=== PATIENT | female | born 1990 | race Caucasian/White ===

== ENCOUNTER 2019-10-12 14:39 | Inpatient (IN) | payer MEDICAID ==
[~2019-10-12] VITALS: Ht 160 cm; Wt 52.2 kg
[2019-10-12 14:42] VITALS: BP 108/72
--- NOTE | 2019-10-12 14:45 | NUR ---
PT TO ER BED 2
--- NOTE | 2019-10-12 14:50 | NUR ---
PT C/O INTERMITTENT SUPRAPUBIC PAIN 12/19 POST UNPROTECTED INTERCOURSE. PT STATES SHE HAD UNPROTECTED SEX TWO DAYS AGO AND IMMEDIATELY AFTER FELT A SHOOTING PAIN FROM HER PELVIS TO STOMACH. PT DENIES DISCHARGE OR VAGINAL BLEEDING. DENIES N/V/D. STATES 1 SEXUAL PARTNER. VS STABLE.PT ALERT AND AWAKE. AMBULATORY. NO PMH ALLERGIES: SULFAS
--- NOTE | 2019-10-12 14:56 | NUR ---
URINE DIP COLLECTED, DIP PERFORMED, URINE PREG NEGATIVE
--- NOTE | 2019-10-12 15:28 | NUR ---
LAB AT BEDSIDE
--- NOTE | 2019-10-12 15:35 | NUR ---
PT PERFORMED SELF WET MOUNT IN RESTROOM
[2019-10-12 15:38] LABS: BASOPHILS % (AUTO) 0.7 % (0.0-2.0); EOSINOPHILS # (AUTO) 0.2 K/uL (0-0.4); EOSINOPHILS % (AUTO) 3.9 % (0.0-4.0); HEMATOCRIT 38.4 % (36-48); HEMOGLOBIN 12.8 g/dL (12.0-16.0); LYMPHOCYTES # (AUTO) 1.5 K/uL (2.5-16.5); LYMPHOCYTES % (AUTO) 24.3 % (20.5-51.1); MEAN CORPUSCULAR HEMOGLOBIN 29 pg (27-31); MEAN CORPUSCULAR HGB CONC 33 g/dL (33-37); MEAN CORPUSCULAR VOLUME 86.7 fL (80-94); MONOCYTES # (AUTO) 0.3 K/uL (0.8-1.0); MONOCYTES % (AUTO) 4.9 % (1.7-9.3); NEUTROPHILS # (AUTO) 4.1 K/uL (1.8-7.7); NEUTROPHILS % (AUTO) 66.2 % (42.2-75.2); PLATELET COUNT (AUTO) 184 K/uL (140-450); RED BLOOD CELL COUNT(AUTO) 4.44 MIL/uL (4.20-5.40); RED CELL DISTRIBUTION WIDTH 13.4 % (11.6-13.7); WHITE BLOOD COUNT (AUTO) 6.2 K/uL (4.8-10.8)
--- NOTE | 2019-10-12 16:23 | NUR ---
VS STABLE. PT RESTING IN BED.
[2019-10-12 16:43] LABS: ALBUMIN 3.7 g/dL (3.4-5.0); ANION GAP 10.1 (8-16); CARBON DIOXIDE 29.5 mmol/L (21-32); CREATININE 0.7 mg/dL (0.6-1.3); POTASSIUM 3.6 mmol/L (3.5-5.1); TOTAL BILIRUBIN 0.4 mg/dL (0.0-1.0)
[2019-10-12] MEDS ORDERED: NACL 0.9% 1,000 ML IV ONE (17:15)
[2019-10-12] MEDS ORDERED: MORPHINE SULFATE 4 MG/ML SYR IVP ONE ×2 (17:15→19:35)
--- NOTE | 2019-10-12 17:20 | NUR ---
us shows left ovarian cyst. pt continues to have tenderness to site. verbal order for iv and fluids
--- NOTE | 2019-10-12 17:27 | NUR ---
pt amb to restroom with steady gait
--- NOTE | 2019-10-12 18:24 | NUR ---
PT STATES DECREASED PAIN. PT IN BED ON PHONE. VS STABLE.
--- NOTE | 2019-10-12 18:26 | NUR ---
PAIN 4/10
--- NOTE | 2019-10-12 18:26 | NUR ---
PENDING DR CHANDLER CONSULT
--- NOTE | 2019-10-12 19:09 | NUR ---
REPORT GIVEN TO PRIETO URIOSTEGUI
[2019-10-12] MEDS ORDERED: NACL 0.9% 1,000 ML IV SCH (19:19)
[2019-10-12] MEDS ORDERED: HYDROcodone/APAP 7.5/325 MG 1 TAB PO PRN (19:20)
[2019-10-12] MEDS ORDERED: ONDANSETRON 4 MG/2 ML VIAL IVP PRN (19:20)
[2019-10-12] MEDS ORDERED: ACETAMINOPHEN 325 MG TAB PO PRN (19:20)
--- NOTE | 2019-10-12 19:22 | NUR ---
REPORT RECEIVED FROM MOODY HERNDON. PT REQUESTED WATER, WATER GIVEN, PT RESTING IN BED QUIETLY.
[2019-10-12 19:59] LABS: PROTHROMBIN TIME 10.2 secs (10.8-13.4)
--- NOTE | 2019-10-12 20:00 | NUR ---
RECEIVED PATIENT IN STABLE CONDITION FROM ER VIA WHEELCHAIR. AAOX4, RESPIRATIONS EVEN, UNLABORED. SKIN WARM, DRY. SKIN ASSESSMENT COMPLETED. SKIN INTACT. IV SITE TO RIGHT AC 20G PATENT/INTACT. C/O LOWER ABDOMINAL PAIN 3/10, TOLERABLE AT THIS TIME. NO S/SX ACUTE DISTRESS. PATIENT ORIENTED TO ROOM/STAFF/CALL LIGHT AND SMOKING POLICY. MRSA SCREEN COMPLETED. CALL LIGHT WITHIN REACH. WILL CONTINUE TO MONITOR.
[2019-10-12 20:01] LABS: MAGNESIUM 1.7 mg/dL (1.8-2.4); THYROID STIMULATING HORMONE 0.9 uIU/mL (0.34-3.74)
--- NOTE | 2019-10-12 20:10 | NUR ---
Patient will be admitted to care of DR. CHARLES. Admited to MED SURG. Will go to room 105 B. Belongings list completed. Report to MOODY BRENNER.
[2019-10-12] MEDS: DOCUSATE SODIUM 100 MG GELCAP PO SCH (21:00)
--- NOTE | 2019-10-12 22:10 | NUR ---
PATIENT RESTING IN BED COMFORTABLY. PAIN IS AT TOLERABLE LEVEL /10. NO S/SX ACUTE DISTRESS. CALL LIGHT WITHIN REACH. WILL CONTINUE TO MONITOR.
[2019-10-12 22:27] LABS: APPEARANCE,URINE CLEAR (CLEAR); BILIRUBIN,URINE NEGATIVE (NEGATIVE); BLOOD, URINE NEGATIVE (NEGATIVE); COLOR,URINE YELLOW (YELLOW); LEUKOCYTE ESTERASE ,URINE TRACE (NEGATIVE); NITRITE, URINE NEGATIVE (NEGATIVE); UGLUCOSE NEGATIVE (NEGATIVE)
[2019-10-12 22:37] LABS: RBC,URINE 0-5 /HPF (0-5); WBC,URINE 0-5 /HPF (0-5)
[2019-10-12 22:50] LABS: BARBITURATE, URINE NEGATIVE ng/ml (NEG <=200); BENZODIAZEPINE, URINE NEGATIVE ng/mL (NEG <=200); CANNABINOID, URINE NEGATIVE ng/mL (NEG <=50); COCAINE, URINE NEGATIVE ng/mL (NEG <=300); OPIATE, URINE NEGATIVE ng/mL (NEG <=2000); PHENCYCLIDINE SCREEN,URINE NEGATIVE ng/mL (NEG <=25)
[2019-10-12] MEDS: DOXYCYCLINE 100 MG in DEXTROSE 5% 100 ML IV SCH (23:15)
[2019-10-12] MEDS ORDERED: DOXYCYCLINE 100 MG VIAL IV ONE (23:28)
[2019-10-12] MEDS ORDERED: cefTRIAXone 1,000 MG VIAL ONE (23:29)
[2019-10-13] VITALS: BP 104/70
--- NOTE | 2019-10-13 | NUR ---
PATIENT ASLEEP AND RESTING COMFORTABLY IN BED. NO S/SX ACUTE DISTRESS. CALL LIGHT WITHIN REACH. WILL CONTINUE TO MONITOR.
--- NOTE | 2019-10-13 02:14 | NUR ---
PATIENT CONTINUES IN STABLE CONDITION. NO C/O PAIN. NO S/SX ACUTE DISTRESS. CALL LIGHT WITHIN REACH. WILL CONTINUE TO MONITOR.
[2019-10-13] MEDS ORDERED: MAGNESIUM OXIDE 400 MG TAB PO SCH (03:25)
--- NOTE | 2019-10-13 04:09 | NUR ---
MADE ROUNDS. PATIENT ASLEEP AND CONTINUES IN STABLE CONDITION. NO C/O PAIN. NO S/SX ACUTE DISTRESS. CALL LIGHT WITHIN REACH. WILL CONTINUE TO MONITOR.
[2019-10-13 06:03] LABS: BASOPHILS % (AUTO) 0.4 % (0.0-2.0); EOSINOPHILS # (AUTO) 0.4 K/uL (0-0.4); EOSINOPHILS % (AUTO) 5.3 % (0.0-4.0); HEMATOCRIT 35.2 % (36-48); HEMOGLOBIN 11.8 g/dL (12.0-16.0); LYMPHOCYTES # (AUTO) 2.2 K/uL (2.5-16.5); LYMPHOCYTES % (AUTO) 26.5 % (20.5-51.1); MEAN CORPUSCULAR HEMOGLOBIN 29 pg (27-31); MEAN CORPUSCULAR HGB CONC 34 g/dL (33-37); MEAN CORPUSCULAR VOLUME 87.2 fL (80-94); MONOCYTES # (AUTO) 0.5 K/uL (0.8-1.0); MONOCYTES % (AUTO) 5.5 % (1.7-9.3); NEUTROPHILS # (AUTO) 5.1 K/uL (1.8-7.7); NEUTROPHILS % (AUTO) 62.3 % (42.2-75.2); PLATELET COUNT (AUTO) 167 K/uL (140-450); RED BLOOD CELL COUNT(AUTO) 4.03 MIL/uL (4.20-5.40); RED CELL DISTRIBUTION WIDTH 13.3 % (11.6-13.7); WHITE BLOOD COUNT (AUTO) 8.3 K/uL (4.8-10.8)
--- NOTE | 2019-10-13 06:15 | NUR ---
PATIENT ASLEEP. NO C/O PAIN. NO S/SX ACUTE DISTRESS. CALL LIGHT WITHIN REACH. WILL CONTINUE TO MONITOR.
[2019-10-13 06:43] LABS: MAGNESIUM 1.5 mg/dL (1.8-2.4); PHOSPHORUS 4.1 mg/dL (2.5-4.9)
--- NOTE | 2019-10-13 06:49 | NUR ---
PATIENT IN STABLE CONDITION, CALL LIGHT WITHIN REACH. WILL ENDORSE TO AM SHIFT FOR CONTINUITY OF CARE.
--- NOTE | 2019-10-13 07:04 | NUR ---
PATIENT HAS BEEN SCREENED AND CATEGORIZED LOW NUTRITION RISK. PATIENT WILL BE SEEN WITHIN 7 DAYS OF ADMISSION. 10/19/19 KARSTEN BUTCHER MS, RDN
--- NOTE | 2019-10-13 07:04 | NUR ---
FNS consult received on 10/13/19 for [none given]. Consult reason does not meet high risk criteria per hospital policy. Patient will be seen and assessed according to the nutrition care policy. Esmer James MS, RDN
--- NOTE | 2019-10-13 07:05 | NUR ---
RECEIVED PT FROM [employer] NURSE. PT IS CURRENTLY AWAKE, ALERT WITH NO SIGNS OF DISTRESS NOTED. RESPIRATIONS ARE EVEN AND UNLABORED ON ROOM AIR. SKIN IS INTACT WITH IV PATENT, ASYMPTOMATIC, AND INFUSING PER ORDER. BED IS IN LOW, SEMI FOWLERS POSITION. SAFETY MEASURES IN PLACE AND WILL CONTINUE TO MONITOR.
[2019-10-13 07:11] LABS: CHOL/HDL RATIO 3.2 (1-4.5)
[2019-10-13 08:00] VITALS: BP 94/57
[2019-10-13] MEDS: DOCUSATE SODIUM 100 MG GELCAP PO SCH (09:05)
[2019-10-13] MEDS: DOXYCYCLINE 100 MG in DEXTROSE 5% 100 ML IV SCH (09:05)
--- NOTE | 2019-10-13 09:08 | NUR ---
ADMINISTERED MEDICATIONS PER ORDER AND TOLERATED WELL. PT WOULD LIKE TO KNOW IF SHE WILL BE DISCHARGED TODAY AND WANTS TO KNOW ABOUT HER DIAGNOSES. EDUCATION SESSION WITH PATIENT ABOUT DIAGNOSES AND NO FURTHER QUESTIONS WERE ASKED. SAFETY MEASURES IN PLACE, CALL LIGHT WITHIN REACH AND WILL CONTINUER TO MONITOR.
[2019-10-13] MEDS ORDERED: MAG SULF 2000 MG/WATER PREMIX 50 ML IV SCH (10:00)
[2019-10-13] MEDS ORDERED: INUL1CTB PO (10:24)
[2019-10-13] MEDS ORDERED: DOXY100C59 PO (10:24)
[2019-10-13] MEDS ORDERED: METR250T2 PO (10:24)
--- NOTE | 2019-10-13 10:46 | NUR ---
ADMINISTERED MEDICATIONS PER ORDERS AND TOLERATED WELL. PT STATES PAIN IN PELVIC AREA BUT IS AT A TOLERABLE LEVEL. NO SIGNS OF DISTRESS NOTED, CALL LIGHT WITHIN REACH AND SAFETY MEASURES IN PLACE.
[2019-10-13 12:07] VITALS: BP 94/57
--- NOTE | 2019-10-13 12:37 | NUR ---
ADMINISTERED MEDICATIONS PER ORDER AND TOLERATED WELL. PT IS READY TO GO HOME. SAFETY MEASURES IN PLACE AND WILL CONTINUE TO MONITOR.
[2019-10-13] MEDS ORDERED: metroNIDAZOLE 500 MG TAB PO SCH (13:00)
--- NOTE | 2019-10-13 14:05 | NUR ---
PT WAS DISCHARGED TO HOME AND ESCORTED OFF UNIT VIA FOOT. ID BANDS WERE REMOVED. PT WAS IN STABLE CONDITION. IV WAS REMOVED WITH LUMEN INTACT AND MINIMAL BLOOD LOSS. DISCHARGE INSTRUCTIONS, MEDICATION ADHERENCE, AND MD FOLLOW INSTRUCTIONS GIVEN. PT VERBALIZED UNDERSTANDING AND NO FURTHER QUESTIONS ASKED.
[2019-10-15 07:29] LABS: CHLAMYDIA TRACHOMATIS AMP DNA Negative (Negative)
== END 2019-10-13 14:00 | disposition home or self-care (01) | DRG 531 ==
LOC: MED 14:39 → MTU 19:23
PROVIDERS: ADMIT General Practice; ATTEND General Practice
DX: N73.9 Female pelvic inflammatory disease, unspecified (principal); E83.42 Hypomagnesemia; N83.02 Follicular cyst of left ovary; N94.10 Unspecified dyspareunia; N39.0 Urinary tract infection, site not specified; Z88.2 Allergy status to sulfonamides
CPT/HCPCS: 36415; 71045; 76856; 80053; 80305; 81001; 82150; 83036; 83690; 83735; 84100; 84443; 84484; 85025; 85610; 85730; 86592; 87081; 87086; 87210; 87340; 87491; 96361; 96374; 99285; J0696; J2270; J3475; J3490; J7030; J7060; Q0092

== ENCOUNTER 2019-11-13 19:16 | Emergency (ER) | payer MEDICAID ==
[~2019-11-13] VITALS: Ht 162.6 cm; Wt 59.4 kg
[~2019-11-13 19:16] MED LIST: DOXY100C59 PO; INUL1CTB PO; METR250T2 PO
[2019-11-13 19:17] VITALS: BP 120/74
[2019-11-13 20:20] LABS: APPEARANCE,URINE CLEAR (CLEAR); BILIRUBIN,URINE NEGATIVE (NEGATIVE); BLOOD, URINE NEGATIVE (NEGATIVE); COLOR,URINE YELLOW (YELLOW); LEUKOCYTE ESTERASE ,URINE NEGATIVE (NEGATIVE); NITRITE, URINE NEGATIVE (NEGATIVE); PH,URINE 5.5 (5.0-9.0); UGLUCOSE NEGATIVE (NEGATIVE)
[2019-11-13 20:46] LABS: BASOPHILS % (AUTO) 0.5 % (0.0-2.0); EOSINOPHILS # (AUTO) 0.2 K/uL (0-0.4); EOSINOPHILS % (AUTO) 3.2 % (0.0-4.0); HEMATOCRIT 39.9 % (36-48); HEMOGLOBIN 13.4 g/dL (12.0-16.0); LYMPHOCYTES # (AUTO) 1.8 K/uL (2.5-16.5); LYMPHOCYTES % (AUTO) 25.6 % (20.5-51.1); MEAN CORPUSCULAR HEMOGLOBIN 29 pg (27-31); MEAN CORPUSCULAR HGB CONC 34 g/dL (33-37); MEAN CORPUSCULAR VOLUME 87.4 fL (80-94); MONOCYTES # (AUTO) 0.6 K/uL (0.8-1.0); MONOCYTES % (AUTO) 7.7 % (1.7-9.3); NEUTROPHILS # (AUTO) 4.5 K/uL (1.8-7.7); PLATELET COUNT (AUTO) 199 K/uL (140-450); RED BLOOD CELL COUNT(AUTO) 4.56 MIL/uL (4.20-5.40); RED CELL DISTRIBUTION WIDTH 13.6 % (11.6-13.7); WHITE BLOOD COUNT (AUTO) 7.2 K/uL (4.8-10.8)
[2019-11-13] MEDS ORDERED: KETOROLAC 30 MG/ML VIAL IM ONE (20:55)
[2019-11-13 20:58] LABS: ALBUMIN 4.1 g/dL (3.4-5.0); ANION GAP 14.4 (8-16); CARBON DIOXIDE 28.2 mmol/L (21-32); CREATININE 0.7 mg/dL (0.6-1.3); POTASSIUM 4.6 mmol/L (3.5-5.1); TOTAL BILIRUBIN 0.3 mg/dL (0.0-1.0)
[2019-11-13] MEDS ORDERED: DOXYCYCLINE 100 MG CAP PO SCH (21:35)
[2019-11-13] MEDS ORDERED: metroNIDAZOLE 250 MG TAB PO ONE (21:35)
[2019-11-13] MEDS ORDERED: KETOROLAC 30 MG/ML VIAL IVP ONE (21:45)
[2019-11-14 00:13] VITALS: BP 120/74
[2019-11-16 06:11] LABS: CHLAMYDIA TRACHOMATIS AMP DNA Negative (Negative)
== END 2019-11-14 00:06 | disposition home or self-care (01) ==
LOC: MED 19:16
DX: R10.2 Pelvic and perineal pain (principal); F12.90 Cannabis use, unspecified, uncomplicated; N94.10 Unspecified dyspareunia; N73.9 Female pelvic inflammatory disease, unspecified; Z88.2 Allergy status to sulfonamides; Z79.899 Other long term (current) drug therapy
CPT/HCPCS: 36415; 76856; 80053; 81003; 82150; 83690; 85025; 85651; 86140; 87086; 87210; 87491; 93976; 96372; 96374; 99284; J0694; J1885; Q0092

== ENCOUNTER 2020-03-06 20:02 | Emergency (ER) | payer MEDICAID, OTHER ==
[~2020-03-06] VITALS: Ht 162.6 cm; Wt 59.0 kg
[2020-03-06 20:09] VITALS: BP 125/80
--- NOTE | 2020-03-06 20:15 | NUR ---
RYAN KIM AT BEDSIDE FOR MEDICAL EVALUATION.
--- NOTE | 2020-03-06 20:15 | NUR ---
29 Y/O FEMALE PRESENTED TO ED C/O SHARP INTERMITTENT PRESSURE IN RIGHT SUPRABIC AREA. OBSERVED PAIN UPON PALPATION OF RIGHT SUPRAPUBIC AREA. PT STATES SHE HAS A HX OF ENDOMETRIOSIS AND HAD PELVIC LAPAROSCOPY IN DECEMBER. PT + NAUSEA . PT DENIES FEVER, DYSURIA AND HEMATURIA. PT STATES SHE HAS WHITE VAGINAL DISCHARGE W/ NO FOUL ODOR. PT STATES HER PAIN ISN'T BAD AT THIS MOMENT, 12/19 DUE TO TAKING IBUPROFEN NOT TOO LONG AGO. PT PLACED IN GOWN, RESTING IN BED, LOCKED AND IN LOWEST POSITION, HOB ELEVATED, SIDE RAIL X 1. VSS , NO ACUTE DISTRESS NOTED AT THIS TIME. ALLERGIES: SULFA DRUGS PMH: ENDOMETRIOSIS, OVARIAN CYST, HEMORROIDECTOMY
--- NOTE | 2020-03-06 20:30 | NUR ---
URINE SAMPLE COLLECTED , DIPPED AND HCG ADMINISTERED. LAB MADE AWARE OF URINE SAMPLE IN DIRTY UTILITY.
--- NOTE | 2020-03-06 20:42 | NUR ---
LAB AT BEDSIDE.
[2020-03-06 20:47] LABS: APPEARANCE,URINE CLEAR (CLEAR); BILIRUBIN,URINE NEGATIVE (NEGATIVE); BLOOD, URINE NEGATIVE (NEGATIVE); COLOR,URINE YELLOW (YELLOW); LEUKOCYTE ESTERASE ,URINE NEGATIVE (NEGATIVE); NITRITE, URINE NEGATIVE (NEGATIVE); UGLUCOSE NEGATIVE (NEGATIVE)
--- NOTE | 2020-03-06 20:50 | NUR ---
Pelvic exam performed by NORM KIM with BLAIR YANCEY RN at bedside for entire examination. Patient tolerated procedure WELL. Patient assisted to position of comfort after examination.
--- NOTE | 2020-03-06 20:50 | NUR ---
WET MOUNT SAMPLE COLLECTED DURING PELVIC EXAM BY ONRM KIM, SAMPLE WALKED TO LAB.
[2020-03-06 20:55] LABS: BASOPHILS % (AUTO) 0.5 % (0.0-2.0); EOSINOPHILS # (AUTO) 0.2 K/uL (0-0.4); EOSINOPHILS % (AUTO) 2.2 % (0.0-4.0); HEMATOCRIT 40.6 % (36-48); HEMOGLOBIN 13.6 g/dL (12.0-16.0); LYMPHOCYTES # (AUTO) 1.8 K/uL (2.5-16.5); MEAN CORPUSCULAR HEMOGLOBIN 29 pg (27-31); MEAN CORPUSCULAR HGB CONC 34 g/dL (33-37); MEAN CORPUSCULAR VOLUME 87.3 fL (80-94); MONOCYTES # (AUTO) 0.4 K/uL (0.8-1.0); MONOCYTES % (AUTO) 5.8 % (1.7-9.3); NEUTROPHILS % (AUTO) 67.5 % (42.2-75.2); PLATELET COUNT (AUTO) 207 K/uL (140-450); RED BLOOD CELL COUNT(AUTO) 4.66 MIL/uL (4.20-5.40); RED CELL DISTRIBUTION WIDTH 13.3 % (11.6-13.7); WHITE BLOOD COUNT (AUTO) 7.4 K/uL (4.8-10.8)
--- NOTE | 2020-03-06 21:06 | NUR ---
ULTRASOUND AT BEDSIDE.
[2020-03-06 21:10] LABS: ALBUMIN 3.9 g/dL (3.4-5.0); ANION GAP 11.2 (8-16); CARBON DIOXIDE 27.7 mmol/L (21-32); CREATININE 0.6 mg/dL (0.6-1.3); POTASSIUM 3.9 mmol/L (3.5-5.1); TOTAL BILIRUBIN 0.2 mg/dL (0.0-1.0)
--- NOTE | 2020-03-06 22:17 | NUR ---
PT RESTING IN BED, LOCKED AND IN LOWEST POSITION, VSS . NO ACUTE DISTRESS NOTED AT THIS TIME. PT MADE AWARE THAT WE ARE WAITING ON ULTRASOUND RESULTS AT THIS TIME.
--- NOTE | 2020-03-06 22:40 | NUR ---
PT STATE SHE IS WORRIED SHE MIGHT BE AND THAT SHE HAD A + TEST TODAY. PER DR. DE LA FUENTE ORDER HCG SERUM TEST FOR VERIFY.
--- NOTE | 2020-03-06 23:14 | NUR ---
DR. DE LA FUENTE AT BEDSIDE FOR RE EVALUATION.
[2020-03-06 23:30] VITALS: BP 123/77
--- NOTE | 2020-03-06 23:30 | NUR ---
Patient discharged with v/s stable. Written and verbal after care instructions given and explained. Patient verbalized understanding. Ambulatory with steady gait. All questions addressed prior to discharge. Advised to follow up with PMD.
== END 2020-03-06 23:30 | disposition home or self-care (01) ==
LOC: MED 20:02
DX: O26.891 Other specified pregnancy related conditions, first trimester (principal); R10.2 Pelvic and perineal pain; Z88.2 Allergy status to sulfonamides; Z79.899 Other long term (current) drug therapy; Z98.890 Other specified postprocedural states
CPT/HCPCS: 36415; 76856; 80053; 81003; 81025; 84702; 85025; 87210; 99284; Q0092

== ENCOUNTER 2020-05-15 10:11 | Day surgery (SDC) | payer OTHER, SELFPAY ==
[~2020-05-15] VITALS: Ht 160 cm; Wt 55.8 kg
[~2020-05-15 10:11] MED LIST changes: +METR-520 PO; -METR250T2 PO
[2020-05-15 11:58] LABS: BASOPHILS % (AUTO) 0.1 % (0.0-2.0); EOSINOPHILS # (AUTO) 0.2 K/uL (0-0.4); EOSINOPHILS % (AUTO) 4.1 % (0.0-4.0); HEMATOCRIT 45.7 % (36-48); HEMOGLOBIN 15.2 g/dL (12.0-16.0); LYMPHOCYTES # (AUTO) 1.5 K/uL (2.5-16.5); LYMPHOCYTES % (AUTO) 28.8 % (20.5-51.1); MEAN CORPUSCULAR HEMOGLOBIN 29 pg (27-31); MEAN CORPUSCULAR HGB CONC 33 g/dL (33-37); MEAN CORPUSCULAR VOLUME 87.5 fL (80-94); MONOCYTES # (AUTO) 0.4 K/uL (0.8-1.0); MONOCYTES % (AUTO) 6.8 % (1.7-9.3); NEUTROPHILS # (AUTO) 3.1 K/uL (1.8-7.7); NEUTROPHILS % (AUTO) 60.2 % (42.2-75.2); PLATELET COUNT (AUTO) 225 K/uL (140-450); RED BLOOD CELL COUNT(AUTO) 5.23 MIL/uL (4.20-5.40); RED CELL DISTRIBUTION WIDTH 13.9 % (11.6-13.7); WHITE BLOOD COUNT (AUTO) 5.2 K/uL (4.8-10.8)
[2020-05-15 12:03] LABS: ANION GAP 12.2 (8-16); CARBON DIOXIDE 30.1 mmol/L (21-32); CREATININE 0.6 mg/dL (0.6-1.3); POTASSIUM 3.3 mmol/L (3.5-5.1)
[2020-05-15 12:09] LABS: APPEARANCE,URINE CLEAR (CLEAR); BILIRUBIN,URINE 1+ (NEGATIVE); BLOOD, URINE 2+ (NEGATIVE); COLOR,URINE YELLOW (YELLOW); LEUKOCYTE ESTERASE ,URINE NEGATIVE (NEGATIVE); NITRITE, URINE NEGATIVE (NEGATIVE); UGLUCOSE NEGATIVE (NEGATIVE)
[2020-05-15 12:18] LABS: WBC,URINE 0-5 /HPF (0-5)
[2020-05-15] MEDS ORDERED: KETOROLAC 30 MG/ML VIAL ONE (13:00)
[2020-05-15] MEDS ORDERED: DESFLURANE 240 ML BTL INH ONE (13:00)
[2020-05-15] MEDS ORDERED: ONDANSETRON 4 MG/2 ML VIAL ONE (13:00)
[2020-05-15] MEDS ORDERED: DEXAMETHASONE 4 MG/ML VIAL ONE (13:00)
[2020-05-15] MEDS ORDERED: fentaNYL citrate 0.05 MG/ML VIAL ONE (13:00)
[2020-05-15] MEDS ORDERED: PROPOFOL 200 MG/20 ML VIAL IV ONE (13:00)
[2020-05-15] MEDS ORDERED: ONDANSETRON 4 MG/2 ML VIAL IVP PRN (13:20)
[2020-05-15] MEDS ORDERED: HYDROmorphone 1 MG/ML AMP IVP PRN (13:20)
[2020-05-15] MEDS ORDERED: KETOROLAC 30 MG/ML VIAL IVP SCH (14:20)
[2020-05-15] MEDS ORDERED: HYDROmorphone PFS 2 MG/ML SYR ONE (14:24)
== END 2020-05-15 15:30 | disposition home or self-care (01) ==
LOC: MDS 10:11 → MFCC 11:26 → MDS 15:30
PROVIDERS: ATTEND Obstetrics & Gynecology
DX: O03.4 Incomplete spontaneous abortion without complication (principal); Z88.2 Allergy status to sulfonamides; Z79.899 Other long term (current) drug therapy
CPT/HCPCS: 36415; 59812; 80048; 81001; 85025; 86886; 86900; 86901; 87426; 88305; J1100; J1170; J1885; J2405; J2704; J3010; J7030

== ENCOUNTER 2021-07-30 08:45 | Emergency (ER) | payer MEDICAID, OTHER, SELFPAY ==
[~2021-07-30] VITALS: Ht 160 cm; Wt 62.6 kg
[~2021-07-30 08:45] MED LIST changes: +DOXY-565 PO; -DOXY100C59 PO
[2021-07-30 08:47] VITALS: BP 107/67
--- NOTE | 2021-07-30 08:52 | NUR ---
PT AMBULATED TO BED 03.
--- NOTE | 2021-07-30 09:15 | NUR ---
31 YO F 17 WEEKS AOG (2011) C/O ABDOMINAL CRAMPING SINCE LAST NIGHT. PT REPORTS PAIN 6/10, WHICH LASTS 7-10MINS. OB ADVICED PT TO SEEK CONSULT IN ER. DENIES VAGINAL BLEEDING, LOW BACK PAIN. NO MEDS TAKEN. LMP: PMH: COVID- JUN 2021 MEDS: ALLERGY: SULFA
--- NOTE | 2021-07-30 09:20 | NUR ---
ULTRASOUND AT BEDSIDE.
--- NOTE | 2021-07-30 09:45 | NUR ---
PT AMBULATED TO RESTROOM FOR URINE SAMPLE
[2021-07-30 09:58] LABS: APPEARANCE,URINE CLEAR (CLEAR); BILIRUBIN,URINE NEGATIVE (NEGATIVE); BLOOD, URINE NEGATIVE (NEGATIVE); COLOR,URINE YELLOW (YELLOW); LEUKOCYTE ESTERASE ,URINE NEGATIVE (NEGATIVE); NITRITE, URINE NEGATIVE (NEGATIVE); UGLUCOSE NEGATIVE (NEGATIVE)
[2021-07-30 10:31] VITALS: BP 107/67
== END 2021-07-30 10:31 | disposition home or self-care (01) ==
LOC: MED 08:45
DX: O26.892 Other specified pregnancy related conditions, second trimester (principal); R10.2 Pelvic and perineal pain; Z3A.17 17 weeks gestation of pregnancy; Z79.899 Other long term (current) drug therapy; Z79.2 Long term (current) use of antibiotics; Z88.2 Allergy status to sulfonamides
CPT/HCPCS: 76805; 81003; 99284; Q0092

== ENCOUNTER 2021-11-18 05:39 | Inpatient (IN) | payer MEDICAID ==
[~2021-11-18] VITALS: Ht 160 cm; Wt 68.9 kg
[2021-11-18] MEDS ORDERED: MORPHINE SULFATE 5 MG/ML VIAL IVP PRN (06:25)
[2021-11-18] MEDS: TERBUTALINE 1 MG/ML VIAL SUBQ SCH ×2 (06:48→07:50)
[2021-11-18] MEDS: LACTATED RINGERS 1,000 ML IV SCH ×3 (06:50→22:52)
[2021-11-18 07:03] VITALS: BP 127/82
[2021-11-18 07:24] LABS: APPEARANCE,URINE CLEAR (CLEAR); BILIRUBIN,URINE NEGATIVE (NEGATIVE); BLOOD, URINE NEGATIVE (NEGATIVE); COLOR,URINE YELLOW (YELLOW); LEUKOCYTE ESTERASE ,URINE NEGATIVE (NEGATIVE); NITRITE, URINE NEGATIVE (NEGATIVE); UGLUCOSE NEGATIVE (NEGATIVE)
[2021-11-18] MEDS: BETAMETH ACET/BETAMETH NA PH 30 MG/5 ML VIAL IM PRN (07:41)
[2021-11-18] MEDS ORDERED: MORPHINE SULFATE 10 MG/ML VIAL ONE ×2 (07:55→23:02)
[2021-11-18 07:59] VITALS: BP 127/73
[2021-11-18] MEDS: ONDANSETRON 4 MG/2 ML VIAL IVP PRN ×2 (08:01→23:03)
[2021-11-18] MEDS ORDERED: AMPICILLIN 2,000 MG in NACL 0.9% 100 ML IV SCH (10:00)
[2021-11-18] MEDS ORDERED: AMPICILLIN 2,000 MG VIAL ONE (10:37)
[2021-11-18] MEDS ORDERED: MAG SULF 2000 MG/WATER PREMIX 100 ML IV SCH (14:35)
[2021-11-18] MEDS ORDERED: MAG SULF 20 GM/H2O PREMIX DRIP 500 ML IV PRN (14:35)
[2021-11-18] MEDS ORDERED: AMPICILLIN 1,000 MG VIAL ONE ×3 (14:41→22:48)
[2021-11-18] MEDS: AMPICILLIN 1,000 MG in NACL 0.9% 50 ML IV SCH ×2 (14:48→18:36)
[2021-11-18 15:18] LABS: ALBUMIN 2.3 g/dL (3.4-5.0); ANION GAP 14.7 (8-16); CARBON DIOXIDE 21.2 mmol/L (21-32); CREATININE 0.4 mg/dL (0.6-1.3); POTASSIUM 3.9 mmol/L (3.5-5.1); TOTAL BILIRUBIN 0.3 mg/dL (0.0-1.0)
--- NOTE | 2021-11-18 15:44 | NUR ---
PATIENT HAS BEEN SCREENED AND CATEGORIZED LOW NUTRITION RISK. PATIENT WILL BE SEEN WITHIN 7 DAYS OF ADMISSION. 11/24/[address]
[2021-11-19] MEDS ORDERED: MAG SULF 2000 MG/WATER PREMIX 100 ML IV ONE (00:20)
[2021-11-19] MEDS ORDERED: ACETAMINOPHEN 325 MG TAB PO PRN (00:20)
[2021-11-19] MEDS ORDERED: MAG SULF 20 GM/H2O PREMIX DRIP 500 ML IV PRN (00:20)
[2021-11-19] MEDS ORDERED: AMPICILLIN 1,000 MG VIAL ONE ×2 (02:22→06:27)
[2021-11-19] MEDS ORDERED: MAG SULF 2000 MG/WATER PREMIX 50 ML IV ONE (03:23)
[2021-11-19] MEDS: BETAMETH ACET/BETAMETH NA PH 30 MG/5 ML VIAL IM PRN (08:25)
[2021-11-19] MEDS: NIFEdipine 10 MG CAPLF PO SCH ×2 (10:08→16:08)
== END 2021-11-19 17:50 | disposition home or self-care (01) | DRG 566 ==
LOC: MLD 05:39 → UNDOADMIN 05:39 → MFCC 15:00 → MLD 11-19 07:51 → MFCC 11-19 08:12
PROVIDERS: ADMIT Obstetrics & Gynecology; ATTEND Obstetrics & Gynecology
DX: O60.03 Preterm labor without delivery, third trimester (principal); K21.9 Gastro-esophageal reflux disease without esophagitis; Z88.2 Allergy status to sulfonamides; O99.613 Diseases of the digestive system complicating pregnancy, third trimester; Z20.822 Contact with and (suspected) exposure to COVID-19; Z3A.33 33 weeks gestation of pregnancy
CPT/HCPCS: 36415; 76817; 80053; 81003; 83735; 87653-90; J0290; J0702; J2270; J2405; J3105; J3475; Q0092

== ENCOUNTER 2021-12-01 23:02 | Observation (INO) | payer MEDICAID ==
[~2021-12-01] VITALS: Ht 162.6 cm; Wt 70.3 kg
[2021-12-02] MEDS ORDERED: ONDANSETRON 4 MG/2 ML VIAL IVP PRN (00:35)
[2021-12-02] MEDS ORDERED: NALBUPHINE 10 MG/ML AMP IVP PRN (00:35)
[2021-12-02] MEDS ORDERED: PROMETHAZINE 25 MG/ML VIAL IVP PRN (00:35)
[2021-12-02 00:55] VITALS: BP 127/74
[2021-12-02] MEDS: LACTATED RINGERS 1,000 ML IV SCH ×2 (01:03→06:30)
[2021-12-02 12:22] LABS: BASOPHILS % (AUTO) 0.3 % (0.0-2.0); EOSINOPHILS # (AUTO) 0.1 K/uL (0-0.4); EOSINOPHILS % (AUTO) 1.3 % (0.0-4.0); HEMATOCRIT 33.9 % (36-48); LYMPHOCYTES # (AUTO) 1.5 K/uL (2.5-16.5); LYMPHOCYTES % (AUTO) 17.9 % (20.5-51.1); MEAN CORPUSCULAR HEMOGLOBIN 27 pg (27-31); MEAN CORPUSCULAR HGB CONC 32 g/dL (33-37); MEAN CORPUSCULAR VOLUME 84.6 fL (80-94); MONOCYTES # (AUTO) 0.6 K/uL (0.8-1.0); MONOCYTES % (AUTO) 7.2 % (1.7-9.3); NEUTROPHILS # (AUTO) 6.2 K/uL (1.8-7.7); NEUTROPHILS % (AUTO) 73.3 % (42.2-75.2); PLATELET COUNT (AUTO) 176 K/uL (140-450); RED BLOOD CELL COUNT(AUTO) 4.01 MIL/uL (4.20-5.40); RED CELL DISTRIBUTION WIDTH 14.5 % (11.6-13.7); WHITE BLOOD COUNT (AUTO) 8.5 K/uL (4.8-10.8)
--- NOTE | 2021-12-02 12:29 | NUR ---
PATIENT HAS BEEN SCREENED AND CATEGORIZED LOW NUTRITION RISK. PATIENT WILL BE SEEN WITHIN 7 DAYS OF ADMISSION. 12/08/[address]
[2021-12-02 12:59] LABS: ALBUMIN 2.3 g/dL (3.4-5.0); ANION GAP 8.3 (8-16); CARBON DIOXIDE 26.4 mmol/L (21-32); CREATININE 0.4 mg/dL (0.6-1.3); POTASSIUM 3.7 mmol/L (3.5-5.1); TOTAL BILIRUBIN 0.3 mg/dL (0.0-1.0)
[2021-12-02 13:58] LABS: BILIRUBIN,URINE NEGATIVE (NEGATIVE); BLOOD, URINE NEGATIVE (NEGATIVE); COLOR,URINE YELLOW (YELLOW); LEUKOCYTE ESTERASE ,URINE NEGATIVE (NEGATIVE); NITRITE, URINE NEGATIVE (NEGATIVE); PH,URINE 7.5 (5.0-9.0); UGLUCOSE NEGATIVE (NEGATIVE)
[2021-12-02 14:06] LABS: APPEARANCE,URINE SLIGHTLY HAZY (CLEAR)
[2021-12-02 14:30] LABS: CALCIUM OXALATE CRYSTALS,UR None Seen /HPF (None Seen); COARSE GRANULAR CASTS,URINE None Seen /LPF (None Seen); FINE GRANULAR CASTS,URINE None Seen /LPF (None Seen); HYALINE CASTS, URINE None Seen /LPF (None Seen); OTHER CASTS, URINE None Seen /LPF (None Seen); OTHER CRYSTALS,URINE None Seen /HPF (None Seen); RBC,URINE NONE SEEN /HPF (0-5); RED BLOOD CELL CASTS,URINE None Seen /LPF (None Seen); TRICHOMONAS,URINE None Seen /HPF (None Seen); TRIPLE PHOSPHATE CRYSTAL,UR None Seen /HPF (None Seen); URIC ACID CRYSTALS,URINE None Seen /HPF (None Seen); URINE AMORPHOUS URATE None Seen /HPF (None Seen); WAXY CASTS,URINE None Seen /LPF (None Seen); WBC,URINE NONE SEEN /HPF (0-5); YEAST,URINE None Seen /HPF (None Seen)
== END 2021-12-02 15:25 | disposition home or self-care (01) ==
LOC: MLD 23:02
PROVIDERS: ADMIT Obstetrics & Gynecology; ATTEND Obstetrics & Gynecology
DX: O26.893 Other specified pregnancy related conditions, third trimester (principal); R10.30 Lower abdominal pain, unspecified; R11.0 Nausea; Z3A.36 36 weeks gestation of pregnancy
CPT/HCPCS: 36415; 59025; 76705; 80053; 81000; 81001; 85025; 87086; 96361; 96374; 96375; G0378; J2300; J2550; J7120; Q0092

== ENCOUNTER 2021-12-19 23:30 | Inpatient (IN) | payer MEDICAID ==
[~2021-12-19] VITALS: Ht 160 cm; Wt 70.3 kg
[2021-12-19] MEDS ORDERED: LACTATED RINGERS 1,000 ML IV SCH ×2 (23:55)
[2021-12-20] MEDS ORDERED: TERBUTALINE 1 MG/ML VIAL SUBQ ONE (00:10)
[2021-12-20] MEDS ORDERED: CARBOPROST 250 MCG/ML AMP IM PRN (01:10)
[2021-12-20] MEDS ORDERED: METHYLERGONOVINE 0.2 MG/ML AMP IM PRN ×2 (01:10→09:25)
[2021-12-20] MEDS ORDERED: LACTATED RINGERS 1,000 ML IV SCH (01:10)
[2021-12-20 01:42] LABS: APPEARANCE,URINE CLEAR (CLEAR); BILIRUBIN,URINE NEGATIVE (NEGATIVE); BLOOD, URINE NEGATIVE (NEGATIVE); COLOR,URINE YELLOW (YELLOW); LEUKOCYTE ESTERASE ,URINE NEGATIVE (NEGATIVE); NITRITE, URINE NEGATIVE (NEGATIVE); UGLUCOSE NEGATIVE (NEGATIVE)
[2021-12-20 01:47] LABS: BASOPHILS % (AUTO) 0.5 % (0.0-2.0); EOSINOPHILS # (AUTO) 0.1 K/uL (0-0.4); EOSINOPHILS % (AUTO) 0.9 % (0.0-4.0); HEMATOCRIT 33.3 % (36-48); LYMPHOCYTES # (AUTO) 2.6 K/uL (2.5-16.5); LYMPHOCYTES % (AUTO) 26.6 % (20.5-51.1); MEAN CORPUSCULAR HEMOGLOBIN 28 pg (27-31); MEAN CORPUSCULAR HGB CONC 33 g/dL (33-37); MEAN CORPUSCULAR VOLUME 83.1 fL (80-94); MONOCYTES # (AUTO) 0.6 K/uL (0.8-1.0); MONOCYTES % (AUTO) 6.1 % (1.7-9.3); NEUTROPHILS # (AUTO) 6.4 K/uL (1.8-7.7); NEUTROPHILS % (AUTO) 65.9 % (42.2-75.2); PLATELET COUNT (AUTO) 183 K/uL (140-450); RED CELL DISTRIBUTION WIDTH 14.4 % (11.6-13.7); WHITE BLOOD COUNT (AUTO) 9.6 K/uL (4.8-10.8)
[2021-12-20 01:50] LABS: PROTHROMBIN TIME 9.4 secs (10.8-13.4)
[2021-12-20 01:52] LABS: BARBITURATE, URINE NEGATIVE ng/ml (NEG <=200); BENZODIAZEPINE, URINE NEGATIVE ng/mL (NEG <=200); CANNABINOID, URINE NEGATIVE ng/mL (NEG <=50); COCAINE, URINE NEGATIVE ng/mL (NEG <=300); OPIATE, URINE NEGATIVE ng/mL (NEG <=2000); PHENCYCLIDINE SCREEN,URINE NEGATIVE ng/mL (NEG <=25)
[2021-12-20 01:57] LABS: ALBUMIN 2.4 g/dL (3.4-5.0); ANION GAP 14.3 (8-16); CARBON DIOXIDE 21.6 mmol/L (21-32); CREATININE 0.5 mg/dL (0.6-1.3); TOTAL BILIRUBIN 0.4 mg/dL (0.0-1.0)
[2021-12-20 02:43] LABS: POTASSIUM 2.9 mmol/L (3.5-5.1)
[2021-12-20] MEDS: TERBUTALINE 1 MG/ML VIAL SUBQ SCH ×2 (03:10→03:11)
[2021-12-20] MEDS ORDERED: ceFAZolin 2,000 MG VIAL ONE (04:31)
[2021-12-20] MEDS ORDERED: POTASSIUM CHLORIDE 40 MEQ in NACL 0.9% 1,000 ML IV SCH (05:50)
[2021-12-20] MEDS ORDERED: KCL 20 MEQ/WATER INJ PREMIX 200 ML IV ONE (06:00)
[2021-12-20] MEDS ORDERED: MORPHINE PRES FREE 10 MG/10 ML AMP IV ONE (06:08)
[2021-12-20] MEDS ORDERED: MIDAZOLAM 2 MG/2 ML VIAL ONE (06:09)
[2021-12-20] MEDS ORDERED: OXYTOCIN 20 UNITS/LR PREMIX 1,000 ML IV ONE ×3 (06:10→23:12)
[2021-12-20] MEDS ORDERED: KCL 20 MEQ/WATER INJ PREMIX 100 ML IV ONE (07:30)
--- NOTE | 2021-12-20 08:59 | NUR ---
PATIENT HAS BEEN SCREENED AND CATEGORIZED LOW NUTRITION RISK. PATIENT WILL BE SEEN WITHIN 7 DAYS OF ADMISSION. 12/26/[address]
[2021-12-20] MEDS ORDERED: MEASLES, MUMPS, AND RUBELLA 1 VIAL SQVAC ONE (09:25)
[2021-12-20] MEDS ORDERED: BENZOCAINE/MENTHOL 20%-0.5% 60 GM CAN TP PRN (09:25)
[2021-12-20] MEDS ORDERED: OXYTOCIN 10 UNITS/ML VIAL IM PRN (09:25)
[2021-12-20] MEDS ORDERED: IBUPROFEN 800 MG TAB PO PRN (09:25)
[2021-12-20] MEDS ORDERED: METHYLERGONOVINE 0.2 MG TAB PO PRN (09:25)
[2021-12-20] MEDS ORDERED: MEASLES, MUMPS, AND RUBELLA 1 VIAL SQVAC PRN (09:40)
[2021-12-20] MEDS ORDERED: oxyCODONE/APAP 5/325 MG 1 TAB TAB PO PRN (10:00)
[2021-12-20] MEDS ORDERED: KCL 20 MEQ/WATER INJ PREMIX 200 ML IV SCH (10:00)
[2021-12-20] MEDS ORDERED: bisacodyL 5 MG TABEC PO PRN (10:00)
[2021-12-20] MEDS ORDERED: KETOROLAC 30 MG/ML VIAL IVP PRN ×2 (10:00→19:30)
[2021-12-20] MEDS ORDERED: diphenhydrAMINE 50 MG/ML VIAL ONE (10:15)
[2021-12-20] MEDS ORDERED: diphenhydrAMINE 50 MG/ML VIAL IVP PRN (10:20)
[2021-12-20] MEDS: HYDROCORTISONE 1% CRM 30 GM TUBE TP SCH (14:00)
[2021-12-20] MEDS ORDERED: KETOROLAC 30 MG/ML VIAL ONE (19:32)
[2021-12-20] MEDS ORDERED: HYDROCORTISONE 1% CRM 30 GM TUBE TP SCH (22:00)
[2021-12-21] MEDS ORDERED: oxyCODONE/APAP 5/325 MG 1 TAB TAB PO PRN ×2 (02:00)
[2021-12-21] MEDS ORDERED: IBUPROFEN 800 MG TAB PO SCH ×2 (06:00)
[2021-12-21 09:22] LABS: BASOPHILS % (AUTO) 0.2 % (0.0-2.0); EOSINOPHILS # (AUTO) 0.1 K/uL (0-0.4); EOSINOPHILS % (AUTO) 0.7 % (0.0-4.0); HEMATOCRIT 31.5 % (36-48); HEMOGLOBIN 10.4 g/dL (12.0-16.0); LYMPHOCYTES # (AUTO) 1.5 K/uL (2.5-16.5); LYMPHOCYTES % (AUTO) 13.7 % (20.5-51.1); MEAN CORPUSCULAR HEMOGLOBIN 28 pg (27-31); MEAN CORPUSCULAR HGB CONC 33 g/dL (33-37); MEAN CORPUSCULAR VOLUME 83.3 fL (80-94); MONOCYTES # (AUTO) 0.6 K/uL (0.8-1.0); MONOCYTES % (AUTO) 5.6 % (1.7-9.3); NEUTROPHILS # (AUTO) 8.6 K/uL (1.8-7.7); NEUTROPHILS % (AUTO) 79.8 % (42.2-75.2); PLATELET COUNT (AUTO) 174 K/uL (140-450); RED BLOOD CELL COUNT(AUTO) 3.78 MIL/uL (4.20-5.40); RED CELL DISTRIBUTION WIDTH 15.1 % (11.6-13.7); WHITE BLOOD COUNT (AUTO) 10.8 K/uL (4.8-10.8)
[2021-12-21] MEDS: IBUPROFEN 800 MG TAB PO SCH ×2 (11:56→17:36)
[2021-12-21] MEDS: SIMETHICONE 80 MG TAB.CHEW PO PRN (20:34)
[2021-12-21] MEDS: HYDROCORTISONE 1% CRM 30 GM TUBE TP SCH (20:35)
[2021-12-21] MEDS: oxyCODONE/APAP 5/325 MG 1 TAB TAB PO PRN (20:39)
[2021-12-22] MEDS: IBUPROFEN 800 MG TAB PO SCH ×3 (00:05→11:40)
[2021-12-22] MEDS: oxyCODONE/APAP 5/325 MG 1 TAB TAB PO PRN (05:44)
[2021-12-22] MEDS: SIMETHICONE 80 MG TAB.CHEW PO PRN (05:45)
[2021-12-22] MEDS ORDERED: IBUP-2217 PO (12:23)
== END 2021-12-22 13:45 | disposition home or self-care (01) | DRG 540 ==
LOC: MLD 23:30 → OBSVTOIN 12-20 00:58 → MFCC 12-20 08:30
PROVIDERS: ADMIT Obstetrics & Gynecology; ATTEND Obstetrics & Gynecology
PROC: 10D00Z1 Extraction of Products of Conception, Low, Open Approach (ICD-10-PCS; principal; 2021-12-20 06:00)
DX: O34.211 Maternal care for low transverse scar from previous cesarean delivery (principal); Z20.822 Contact with and (suspected) exposure to COVID-19; Z37.0 Single live birth; Z3A.38 38 weeks gestation of pregnancy; Z80.0 Family history of malignant neoplasm of digestive organs; Z80.3 Family history of malignant neoplasm of breast; Z82.49 Family history of ischemic heart disease and other diseases of the circulatory system; Z83.3 Family history of diabetes mellitus
CPT/HCPCS: 36415; 51702; 80053; 80305; 81003; 84132; 85025; 85610; 85730; 86592; 86762; 86886; 86900; 86901; 87340; G0378; J1200; J1885; J2250; J2270; J2590; J3105; J3480; J7030; J7120